=== PATIENT | female | born 1995 | race Caucasian/White ===

== ENCOUNTER 2019-12-17 01:27 | Emergency (ER) | payer OTHER ==
[~2019-12-17] VITALS: Ht 157.5 cm; Wt 54.0 kg
[2019-12-17 01:56] VITALS: BP 119/71
== END 2019-12-17 06:39 | disposition left against medical advice (07) ==
LOC: ER 01:29
DX: R50.9 Fever, unspecified (principal); Z20.828 Contact with and (suspected) exposure to other viral communicable diseases; Z53.21 Procedure and treatment not carried out due to patient leaving prior to being seen by health care provider
CPT/HCPCS: 36415; 87426

== ENCOUNTER 2022-06-15 17:45 | Emergency (ER) | payer SELFPAY ==
[~2022-06-15] VITALS: Ht 157.5 cm; Wt 62.2 kg
[2022-06-15 18:16] VITALS: BP 112/72
[2022-06-15 18:54] LABS: Urine Bacteria NONE SEEN /hpf (None Seen); Urine Blood Negative /uL (Negative); Urine Specific Gravity 1.016 (1.001-1.035); Urine WBC 2 /hpf (0 - 5)
[2022-06-15] MEDS ORDERED: CYCL-837 PO (19:24)
[2022-06-15] MEDS ORDERED: IBUP800T27 PO (19:24)
[2022-06-15] MEDS ORDERED: KETOROLAC TROMETH 60MG/2ML VIAL IM ONE (19:30)
[2022-06-15] MEDS ORDERED: ONDANSETRON ODT 4 MG TAB PO ONE (20:00)
== END 2022-06-15 20:55 | disposition home or self-care (01) ==
LOC: ER 17:45
DX: S39.012A Strain of muscle, fascia and tendon of lower back, initial encounter (principal); F14.10 Cocaine abuse, uncomplicated; F17.290 Nicotine dependence, other tobacco product, uncomplicated; X58.XXXA Exposure to other specified factors, initial encounter; Y93.89 Activity, other specified; Y92.89 Other specified places as the place of occurrence of the external cause; Y99.8 Other external cause status
CPT/HCPCS: 81001; 81025; 96372; 99283; J1885; Q0162